=== PATIENT | female | born 2000 | race Two or more races ===

== ENCOUNTER 2025-08-13 14:11 | Inpatient (IN) | payer OTHER ==
[~2025-08-13] VITALS: Ht 167.6 cm; Wt 81.6 kg
--- NOTE | 2025-08-13 19:45 | NUR ---
PTE ES ORIENTADA POR [place] MEDICO REFIERE ENTENDER Y ACEPTAR SE ROSA MUESTRAS DE LAB [facility] ORDEN MEDICA BAJO MEDIDAS ASEPTICAS. SE ENVIA A REALIZAR CT [facility] [place] PTE EN ESPERA DE RESULTADOS PARA REVALUACION MEDICA.
[2025-08-13 19:56] LABS: BASO % 0.4 % (0.1-1.2); EOS # 0.25 (0.04-0.54); EOS % 2.3 % (0.7-7.0); LYMPH # 3.71 (1.18-3.74); LYMPH % 34.0 % (19.3-53.1); MEAN PLATELET VOLUME 10.30 fl (9.4-12.4); MONO # 0.60 (0.24-0.82); MONO % 5.5 % (4.7-12.5); NEUT # 6.27 (1.56-6.13); NEUT % 57.5 % (34.0-71.1); RED CELL DISTRIBUTION WIDTH 12.5 % (11.6-14.4)
[2025-08-13 20:30] LABS: ALT/SGPT 32.0 U/L (12-78); AST/SGOT 43.0 U/L (15-37); BILIRUBIN TOTAL 0.51 mg/dL (0.3-1.2); BUN CREA RATIO 15.0 (7.0-25.0); CREATININE SERUM 0.62 mg/dL (0.55-1.02); GFR 119.28; GLOBULINA 3.5 G/DL (2.4-3.5); GLUCOSE FASTING 91.0 mg/dL (65-100); OSMOLALITY SERUM 281.0 MOSM/KG (275-295)
[2025-08-13 20:35] LABS: PHOSPHOKINASE CREATININE 3262.0 U/L (26-192)
[2025-08-13] MEDS ORDERED: 0.9 % SODIUM CHLORIDE 1,000 ML IV STA (22:00)
[2025-08-14] MEDS ORDERED: FAMOTIDINE/PF 20 MG in 0.9 % SODIUM CHLORIDE 8 ML IV PUSH SCH ×2 (00:11→21:00)
[2025-08-14] MEDS ORDERED: ACETAMINOPHEN 500 MG GEL..CAP PO PRN (00:15)
[2025-08-14] MEDS ORDERED: 0.9 % SODIUM CHLORIDE 1,000 ML IV SCH (00:15)
[2025-08-14 03:00] VITALS: BP 117/80
[2025-08-14 03:02] LABS: INR 1.08
[2025-08-14 03:20] VITALS: BP 115/68; O2SAT 99
[2025-08-14 03:52] LABS: URINE APPEARANCE Clear; URINE BILIRRUBIN Negative (NEGATIVE); URINE BLOOD Negative; URINE COLOR Yellow; URINE GLUCOSE Negative (NEGATIVE); URINE KETONE Negative (NEGATIVE); URINE LEUKOCYTE Negative; URINE NITRATE Negative; URINE PROTEIN Negative (NEGATIVE); URINE UROBILINOGEN 0.2 E.U./dl
[2025-08-14 03:56] LABS: URINE BACTERIA 311.9 uL (0.0-1933); URINE EPITHELIAL CELLS 15.2 uL (0.0-38.8); URINE WBC 32.4 uL (0.0-23.2)
[2025-08-14 04:15] LABS: URINE CAST 0.43 uL (0.0-1.40); URINE RBC 1.4 uL (0.0-20.8)
[2025-08-14 08:51] VITALS: BP 128/80; O2SAT 100
[2025-08-14 15:47] VITALS: BP 11/76; BP 111/76; O2SAT 98
[2025-08-14 23:56] VITALS: BP 120/75; O2SAT 94
[2025-08-15 08:00] VITALS: BP 123/82; O2SAT 97
== END 2025-08-15 13:53 | disposition home or self-care (01) | DRG 101 ==
LOC: ER 14:11 → MEDJ 08-14 01:16 → SURG 08-14 01:16
PROVIDERS: General Practice; ADMIT Internal Medicine; ATTEND Internal Medicine
PROC: BW28ZZZ Computerized Tomography (CT Scan) of Head (ICD-10-PCS; 2025-08-13)
PROC: 4A12X4Z Monitoring of Cardiac Electrical Activity, External Approach (ICD-10-PCS; principal; 2025-08-14)
PROC: B030ZZZ Magnetic Resonance Imaging (MRI) of Brain (ICD-10-PCS; 2025-08-14)
DX: R56.9 Unspecified convulsions (principal); F19.20 Other psychoactive substance dependence, uncomplicated; M62.82 Rhabdomyolysis; R25.2 Cramp and spasm
CPT/HCPCS: 70551